=== PATIENT | female | born 1975 | race Hispanic/Latino ===

== ENCOUNTER → 2020-10-20 15:06 | Outpatient (CLI) | payer OTHER, SELFPAY ==
[2020-10-20 15:24] LABS: Add Manual Diff / Slide Review NO; Basophils Absolute Auto 100 /uL (0-100); Basophils Percent Auto 0.6 % (0-2); Eosinophils Absolute Auto 400 /uL (0-450); Eosinophils Percent Auto 3.8 % (2-4); Hematocrit 42.7 % (36-46); Hemoglobin 14.7 g/dL (12.0-16.0); Lymphocytes Absolute Auto 3100 /uL (1100-4500); Lymphocytes Percent Auto 31.1 % (25-40); Mean Corpuscular HGB Conc 34.4 % (30-36); Mean Corpuscular Hemoglobin 30.7 PG (26-34); Mean Corpuscular Volume 89.1 fL (80-100); Monocytes Absolute Auto 900 /uL (0-900); Monocytes Percent Auto 9.3 % (3-14); Neutrophils Absolute Auto 5500 /uL (1500-7000); Neutrophils Percent Auto 55.2 % (50-75); Platelet Count 326 X10^3/uL (150-400); Red Blood Cell Count 4.79 X10^6/uL (4.0-5.2); Red Cell Distribution Width 12.3 % (11.6-14.8); White Blood Cell Count 9.9 X10^3/uL (4.5-11.0)
[2020-10-20 15:37] LABS: Alanine Aminotransferase 30 IU/L (<35); Albumin 4.1 g/dL (3.5-5.0); Albumin Globulin Ratio 1.4 (1.0-2.8); Alkaline Phosphatase 75 U/L (38-126); Aspartate Aminotransferase 28 IU/L (14-36); BUN Creatinine Ratio 16.9 (6-22); Bilirubin Total 0.3 mg/dL (0.2-1.3); Blood Urea Nitrogen 14 mg/dL (7-17); Calcium 9.1 mg/dL (8.4-10.2); Carbon Dioxide 29 mmol/L (22-32); Chloride 102 mmol/L (98-107); Estimated Glomerular Filt Rate > 60.0 mL/min (>60); Glucose 87 mg/dL (70-100); HEMOLYSIS < 15 (0-50); Potassium 3.9 mmol/L (3.4-5.1); Sodium 138 mmol/L (137-145); Total Protein 7.1 g/dL (6.3-8.2)
[2020-10-20 16:07] LABS: Thyroid Stimulating Hormone 0.148 uIU/mL (0.47-4.68)
== END ==
PROVIDERS: Referring Provider Registered Nurse; Visit Provider Registered Nurse
DX: M79.7 Fibromyalgia (principal); E03.9 Hypothyroidism, unspecified
CPT/HCPCS: 36415; 80053; 84439; 84443; 85025

== ENCOUNTER → 2021-01-07 08:01 | Outpatient (CLI) | payer OTHER, SELFPAY ==
--- NOTE | 2021-01-07 08:03 | DI.MG.S_ITS ---
BILATERAL DIGITAL SCREENING MAMMOGRAM 3D/2D WITH CAD: 01/07/2021 CLINICAL: Routine screening. Family history of breast cancer. Comparison is made to exams dated: 04/03/2017 mammogram, 03/27/2017 mammogram, and 03/20/2017 mammogram - outside. There are scattered fibroglandular elements in both breasts. Current study was also evaluated with a Computer Aided Detection (CAD) system. No significant masses, calcifications, or other findings are seen in either breast. There has been no significant interval change. IMPRESSION: NEGATIVE There is no mammographic evidence of malignancy. A 1 year screening mammogram is recommended. This exam was interpreted at Station ID: [id number]. NOTE: For mammograms, a report in lay terms will be sent to the patient. Approximately 15% of breast malignancies will not be visualized mammographically. In the management of a palpable breast mass, a negative mammogram must not discourage biopsy of a clinically suspicious lesion. Electronically Signed By: Yvan araujo/faizan:01/07/2021 14:17:40 letter sent: Normal Exam ACR BI-RADS Category 1: Negative 3341F
== END ==
PROVIDERS: Referring Provider Specialist; Visit Provider Specialist
DX: Z12.31 Encounter for screening mammogram for malignant neoplasm of breast (principal); Z80.3 Family history of malignant neoplasm of breast
CPT/HCPCS: 77063; 77067

== ENCOUNTER → 2021-02-25 12:59 | Outpatient (CLI) | payer OTHER, SELFPAY ==
--- NOTE | 2021-02-25 13:05 | DI.RAD.S_ITS ---
PROCEDURE: XR CHEST 2V INDICATIONS: cough, wheezing TECHNIQUE: 2 views of the chest were acquired. COMPARISON: None. FINDINGS: Surgical changes and devices: None. Lungs and pleura: Lungs are clear. No pleural effusions or pneumothorax. Mediastinum: Mediastinal contours are normal. Heart size is normal. There is a moderate to large hiatal hernia. Bones and chest wall: No suspicious bony abnormalities. Soft tissues appear unremarkable. IMPRESSION: Clear lungs. Moderate to large hiatal hernia. Dictated by: Neo Farr M.D. on 02/25/2021 at 15:30 Approved by: Neo Farr M.D. on 02/25/2021 at 15:30
== END ==
PROVIDERS: Referring Provider Physician Assistant; Visit Provider Physician Assistant
DX: R06.2 Wheezing (principal); R05.9 Cough, unspecified; K44.9 Diaphragmatic hernia without obstruction or gangrene
CPT/HCPCS: 71046

== ENCOUNTER → 2021-02-28 12:50 | Outpatient (CLI) | payer OTHER, SELFPAY ==
[2021-02-28 15:24] LABS: Thyroid Stimulating Hormone 0.835 uIU/mL (0.47-4.68)
== END ==
PROVIDERS: PCP Registered Nurse; Referring Provider Nurse Practitioner; Visit Provider Nurse Practitioner
DX: E03.9 Hypothyroidism, unspecified (principal); Z79.899 Other long term (current) drug therapy
CPT/HCPCS: 36415; 84443

== ENCOUNTER → 2021-05-11 08:58 | Outpatient (CLI) | payer OTHER, SELFPAY ==
[2021-05-11 11:02] LABS: Alanine Aminotransferase 22 IU/L (<35); Albumin 4.1 g/dL (3.5-5.0); Albumin Globulin Ratio 1.5 (1.0-2.8); Alkaline Phosphatase 85 U/L (38-126); Aspartate Aminotransferase 23 IU/L (14-36); BUN Creatinine Ratio 18.6 (6-22); Bilirubin Total 0.3 mg/dL (0.2-1.3); Blood Urea Nitrogen 16 mg/dL (7-17); Calcium 9.5 mg/dL (8.4-10.2); Carbon Dioxide 30 mmol/L (22-32); Chloride 103 mmol/L (98-107); Estimated Glomerular Filt Rate > 60.0 mL/min (>60); Globulin 2.8 g/dL (1.7-4.1); Glucose 90 mg/dL (70-100); HEMOLYSIS < 15 (0-50); Potassium 4.2 mmol/L (3.4-5.1); Sodium 139 mmol/L (137-145); Total Protein 6.9 g/dL (6.3-8.2)
[2021-05-11 11:03] LABS: Free T3, Triiodothyronine Free 2.72 pg/mL (2.77-5.27); Free T4, Direct Thyroxine 1.04 ng/dL (0.78-2.19)
[2021-05-11 11:17] LABS: Thyroid Stimulating Hormone 2.33 uIU/mL (0.47-4.68)
== END ==
PROVIDERS: PCP Registered Nurse; Referring Provider Registered Nurse; Visit Provider Registered Nurse
DX: E03.9 Hypothyroidism, unspecified (principal); L70.0 Acne vulgaris; Z79.899 Other long term (current) drug therapy
CPT/HCPCS: 36415; 80053; 84439; 84443; 84481

== ENCOUNTER → 2021-07-03 09:12 | Outpatient (CLI) | payer OTHER, SELFPAY ==
[2021-07-03 10:43] LABS: Add Manual Diff / Slide Review NO; Basophils Absolute Auto 0 /uL (0-100); Basophils Percent Auto 0.6 % (0-2); Eosinophils Absolute Auto 200 /uL (0-450); Eosinophils Percent Auto 2.5 % (2-4); Hematocrit 43.9 % (36-46); Hemoglobin 15.4 g/dL (12.0-16.0); Lymphocytes Absolute Auto 1700 /uL (1100-4500); Lymphocytes Percent Auto 23.2 % (25-40); Mean Corpuscular HGB Conc 35.1 % (30-36); Mean Corpuscular Hemoglobin 31.3 PG (26-34); Mean Corpuscular Volume 89.3 fL (80-100); Monocytes Absolute Auto 500 /uL (0-900); Monocytes Percent Auto 7.2 % (3-14); Neutrophils Absolute Auto 4900 /uL (1500-7000); Neutrophils Percent Auto 66.5 % (50-75); Platelet Count 342 X10^3/uL (150-400); Red Blood Cell Count 4.92 X10^6/uL (4.0-5.2); Red Cell Distribution Width 12.3 % (11.6-14.8); White Blood Cell Count 7.4 X10^3/uL (4.5-11.0)
[2021-07-03 11:15] LABS: Alanine Aminotransferase 27 IU/L (<35); Albumin 4.5 g/dL (3.5-5.0); Albumin Globulin Ratio 1.6 (1.0-2.8); Alkaline Phosphatase 65 U/L (38-126); Aspartate Aminotransferase 26 IU/L (14-36); BUN Creatinine Ratio 21.2 (6-22); Bilirubin Total 0.6 mg/dL (0.2-1.3); Blood Urea Nitrogen 18 mg/dL (7-17); Calcium 9.4 mg/dL (8.4-10.2); Carbon Dioxide 26 mmol/L (22-32); Chloride 105 mmol/L (98-107); Estimated Glomerular Filt Rate > 60.0 mL/min (>60); Globulin 2.9 g/dL (1.7-4.1); Glucose 95 mg/dL (70-100); HEMOLYSIS < 15 (0-50); Potassium 3.9 mmol/L (3.4-5.1); Sodium 138 mmol/L (137-145); Total Protein 7.4 g/dL (6.3-8.2)
== END ==
PROVIDERS: PCP Registered Nurse; Referring Provider Surgery; Visit Provider Surgery
DX: K44.9 Diaphragmatic hernia without obstruction or gangrene (principal)
CPT/HCPCS: 36415; 80053; 85025

== ENCOUNTER → 2022-09-14 15:41 | Outpatient (CLI) | payer OTHER, SELFPAY ==
--- NOTE | 2022-09-14 15:41 | DI.US.S_ITS ---
PROCEDURE: US PELVIC COMPLETE INDICATIONS: PAIN; HISTORY CYSTS TECHNIQUE: Real-time scanning was performed of the pelvic organs, with image documentation. Additional endovaginal scanning was necessary due to incomplete visualization of the adnexal and endometrial structures by transabdominal scanning. COMPARISON: None. FINDINGS: Uterus: Surgically absent Ovaries: Neither ovary is visualized Other: No pathologic free abdominal or pelvic fluid. IMPRESSION: Hysterectomy Nonvisualized ovaries No free fluid or adnexal mass. Approved by: Gustavo Dela Cruz M.D. on 09/14/2022 at 16:03
== END ==
PROVIDERS: PCP Family Medicine; Referring Provider Family Medicine; Visit Provider Family Medicine
DX: N95.1 Menopausal and female climacteric states (principal); Z87.42 Personal history of other diseases of the female genital tract; Z90.710 Acquired absence of both cervix and uterus
CPT/HCPCS: 76830; 76856

== ENCOUNTER → 2022-10-10 13:19 | Outpatient (CLI) | payer OTHER, SELFPAY ==
--- NOTE | 2022-10-10 13:21 | DI.MG.S_ITS ---
BILATERAL DIGITAL SCREENING MAMMOGRAM 3D/2D WITH CAD: 10/10/2022 CLINICAL: Routine screening. Family history of breast cancer. Comparison is made to exams dated: 08/07/2021 mammogram - [facility], 01/07/2021 mammogram - [facility], and 03/27/2017 mammogram - outside. There are scattered areas of fibroglandular density in both breasts (category b / 25%-50% glandular tissue). Current study was also evaluated with a Computer Aided Detection (CAD) system. No significant masses, calcifications, or other findings are seen in either breast. There has been no significant interval change. IMPRESSION: NEGATIVE There is no mammographic evidence of malignancy. A 1 year screening mammogram is recommended. Based on the Tyrer Cuzick model (a risk assessment model) the patient's lifetime risk is 6.9% and her 10 year risk is 1.4%. According to the ACR, ACS, and NCCN guidelines, an annual breast MRI exam along with mammogram is recommended if the patient's lifetime risk is 20% or greater. This exam was interpreted at Station ID: [id number]. NOTE: For mammograms, a report in lay terms will be sent to the patient. Approximately 15% of breast malignancies will not be visualized mammographically. In the management of a palpable breast mass, a negative mammogram must not discourage biopsy of a clinically suspicious lesion. Electronically Signed By: Maurice hutchison/faizan:10/10/2022 13:53:11 letter sent: Normal Exam ACR BI-RADS Category 1: Negative [id number]
== END ==
PROVIDERS: PCP Family Medicine; Referring Provider Family Medicine; Visit Provider Family Medicine
DX: Z12.31 Encounter for screening mammogram for malignant neoplasm of breast (principal); Z80.3 Family history of malignant neoplasm of breast
CPT/HCPCS: 77063; 77067

== ENCOUNTER → 2023-02-25 07:42 | Outpatient (CLI) | payer OTHER, SELFPAY ==
[2023-02-25 08:12] LABS: Alanine Aminotransferase 64 IU/L (<35); Albumin 4.2 g/dL (3.5-5.0); Albumin Globulin Ratio 1.3 (1.0-2.8); Alkaline Phosphatase 78 U/L (38-126); Aspartate Aminotransferase 45 IU/L (14-36); BUN Creatinine Ratio 18.8 (6-22); Bilirubin Total 0.6 mg/dL (0.2-1.3); Blood Urea Nitrogen 15 mg/dL (7-17); Calcium 9.6 mg/dL (8.4-10.2); Carbon Dioxide 27 mmol/L (22-32); Chloride 101 mmol/L (98-107); Cholesterol 247 mg/dL (140-199); Estimated Glomerular Filt Rate > 60 mL/min (>60); Globulin 3.2 g/dL (1.7-4.1); Glucose 106 mg/dL (70-100); HDL Cholesterol 46 mg/dL (40-60); HEMOLYSIS < 15 (0-50); LDL Cholesterol Calculated 141 mg/dL (<100); Potassium 3.9 mmol/L (3.4-5.1); Sodium 136 mmol/L (137-145); Total Protein 7.4 g/dL (6.3-8.2); Triglycerides 298 mg/dL (35-150)
[2023-02-25 08:31] LABS: Free T4, Direct Thyroxine 0.94 ng/dL (0.78-2.19)
[2023-02-25 08:45] LABS: Thyroid Stimulating Hormone 3.74 uIU/mL (0.47-4.68)
== END ==
PROVIDERS: PCP Family Medicine; Referring Provider Family Medicine; Visit Provider Family Medicine
DX: E03.9 Hypothyroidism, unspecified (principal); K21.9 Gastro-esophageal reflux disease without esophagitis
CPT/HCPCS: 36415; 80053; 80061; 84439; 84443

== ENCOUNTER → 2024-02-05 17:42 | Outpatient (CLI) | payer OTHER, SELFPAY ==
--- NOTE | 2024-02-05 17:44 | DI.RAD.S_ITS ---
PROCEDURE: XR CHEST 2V INDICATIONS: left side PNA suspected prod cough2 wk/fatigue 1 wk TECHNIQUE: 2 views of the chest were acquired. COMPARISON: [facility], CR, XR CHEST 2V, 02/25/2021, 13:21. FINDINGS: Surgical changes and devices: None. Lungs and pleura: Lungs are clear. No pleural effusions or pneumothorax. Mediastinum: Mediastinal contours are normal. Heart size is normal. Moderate-sized hiatal hernia. Bones and chest wall: No suspicious bony abnormalities. Soft tissues appear unremarkable. IMPRESSION: No acute cardiopulmonary abnormality is seen. Chronic moderate hiatal hernia. Dictated by: Bernice Gonzales M.D. on 02/05/2024 at 19:15 Approved by: Bernice Gonzales M.D. on 02/05/2024 at 19:16
== END ==
PROVIDERS: PCP Family Medicine; Referring Provider Student in an Organized Health Care Education/Training Program; Visit Provider Student in an Organized Health Care Education/Training Program
DX: J18.9 Pneumonia, unspecified organism (principal); K44.9 Diaphragmatic hernia without obstruction or gangrene
CPT/HCPCS: 71046

== ENCOUNTER → 2024-04-14 09:46 | Outpatient (CLI) | payer OTHER, SELFPAY ==
[2024-04-14 10:40] LABS: Add Manual Diff / Slide Review NO; Basophils Absolute Auto 100 /uL (0-100); Basophils Percent Auto 0.8 % (0-2); Eosinophils Absolute Auto 300 /uL (0-450); Eosinophils Percent Auto 3.1 % (2-4); Hematocrit 44.6 % (36-46); Hemoglobin 15.1 g/dL (12.0-16.0); Lymphocytes Absolute Auto 2000 /uL (1100-4500); Lymphocytes Percent Auto 22.1 % (25-40); Mean Corpuscular HGB Conc 33.8 % (30-36); Mean Corpuscular Volume 91.7 fL (80-100); Monocytes Absolute Auto 700 /uL (0-900); Monocytes Percent Auto 7.5 % (3-14); Neutrophils Absolute Auto 6000 /uL (1500-7000); Neutrophils Percent Auto 66.5 % (50-75); Platelet Count 322 X10^3/uL (150-400); Red Blood Cell Count 4.87 X10^6/uL (4.0-5.2); Red Cell Distribution Width 12.6 % (11.6-14.8); White Blood Cell Count 9.1 X10^3/uL (4.5-11.0)
[2024-04-14 11:01] LABS: Alanine Aminotransferase 51 IU/L (<35); Albumin 4.5 g/dL (3.5-5.0); Albumin Globulin Ratio 1.6 (1.0-2.8); Alkaline Phosphatase 88 U/L (38-126); Aspartate Aminotransferase 41 IU/L (14-36); BUN Creatinine Ratio 18.8 (6-22); Bilirubin Total 0.6 mg/dL (0.2-1.3); Blood Urea Nitrogen 16 mg/dL (7-17); Calcium 9.2 mg/dL (8.4-10.2); Carbon Dioxide 30 mmol/L (22-32); Chloride 103 mmol/L (98-107); Cholesterol 215 mg/dL (140-199); Estimated Glomerular Filt Rate > 60 mL/min (>60); Globulin 2.8 g/dL (1.7-4.1); Glucose 105 mg/dL (70-100); HDL Cholesterol 51 mg/dL (40-60); HEMOLYSIS < 15 (0-50); LDL Cholesterol Calculated 137 mg/dL (<100); Potassium 3.9 mmol/L (3.4-5.1); Sodium 140 mmol/L (137-145); Total Protein 7.3 g/dL (6.3-8.2); Triglycerides 133 mg/dL (35-150)
[2024-04-14 11:12] LABS: Hemoglobin A1C% w Est Avg Glu 5.2 % (4.0-6.0)
[2024-04-14 11:18] LABS: Free T4, Direct Thyroxine 1.38 ng/dL (0.78-2.19)
[2024-04-14 11:32] LABS: Thyroid Stimulating Hormone 0.225 uIU/mL (0.47-4.68)
== END ==
PROVIDERS: PCP Family Medicine; Referring Provider Family Medicine; Visit Provider Family Medicine
DX: R73.03 Prediabetes (principal); E78.5 Hyperlipidemia, unspecified; E03.9 Hypothyroidism, unspecified
CPT/HCPCS: 36415; 80053; 80061; 83036; 84439; 84443; 85025

== ENCOUNTER → 2024-06-01 12:27 | Outpatient (CLI) | payer OTHER, SELFPAY ==
--- NOTE | 2024-06-01 12:28 | DI.RAD.S_ITS ---
PROCEDURE: XR CHEST 2V INDICATIONS: Cough TECHNIQUE: 2 views of the chest were acquired. COMPARISON: [facility], CR, XR CHEST 2V, 02/05/2024, 17:44. FINDINGS: Surgical changes and devices: None. Lungs and pleura: Lungs are clear. No pleural effusions or pneumothorax. Mediastinum: Mediastinal contours are normal. Heart size is normal. Bones and chest wall: No suspicious bony abnormalities. Soft tissues appear unremarkable. IMPRESSION: No acute cardiopulmonary abnormality is seen. Dictated by: Juan A Mace M.D. on 06/02/2024 at 5:23 Approved by: Juan A Mace M.D. on 06/02/2024 at 5:24
== END ==
PROVIDERS: PCP Family Medicine; Referring Provider Nurse Practitioner Family; Visit Provider Nurse Practitioner Family
DX: R05.9 Cough, unspecified (principal)
CPT/HCPCS: 71046

== ENCOUNTER → 2024-06-03 15:58 | Outpatient (CLI) | payer OTHER, SELFPAY ==
--- NOTE | 2024-06-04 10:07 | DIET.OUTPTC ---
Dietary Outpatient Consultation Note Consultation Date: 06/03/2024 Assessment: 49 y F referred to dietitian for abnormal weight gain Pt reports difficulty loosing and maintaining weight loss no matter what diet she attempts. Has tried some diets like liver shrinking and juice cleanse, which results in weight loss during diet, but weight regain after diet is stopped. Is ready for change. Wanting to experience less discomfort felt with extra weight. Wanting to have more energy. Works at preschool, is exhausted by end of day. In process of moving as well. Has on and off constipation (1-3 bristol stool chart) and diarrhea (6-7) that cycles. I.e. constipation then regular BM, then diarrhea. Associates this with being sick all the time. Doesn't drink milk d/t lactose intolerance like symptoms from it. Diet recall: B-coffee 1 mug, with 1tsp sugar and 1/4 c half and half L-leftovers -sometimes only able to take a bite or two d/t busy at work D-animal protein (chicken w/o skin, 90% lean beef or pork, shrimp 1x/wk, hamburger 1x/wk) with starchy veg/miranda (potatoes/corn) ex meals were chicken with potatoes and corn and tater tot casserole with beef, beans, and tater tots *has beans and tortillas as part of most meals per week which are cooked with unknown amount of lard in them, does note cooking by frying in oils/butter/lard. Pt is main cook in household. Lard comes from cooking salas. Snack: 1/4 c pistachios, popcorn 2x/month, pretzels, or fruit ( apples etc) Drinks water only. Has not had soda in very long time. Difficulty with maintaining eating schedule, notes she is a picker and sorter load and unload/picking at food. Activity: walking at store/grocery store on weekend day Ht:5ft Wt: 190 lb BMI: 37.1 UBW: Pt reports being 90lb before her hysterectomy surgery and then having rapid weight gain of 60 lb within 8 months after Nutrition Diagnosis: Excessive fat intake r/t cooking methods aeb diet recall with frying foods and adding lard to beans/tortillas regularly Interventions: Discussed the following topics and provided handouts: -Balanced meals and snacks in line with myplate, Mediterranean style of eating -Portion sizing -Education on label reading -Intuitive eating principals/practice -Assessing hunger/fullness level -Fiber and fat types, amounts -Physical activity -Lab values and correlation with nutrition Goal: -Eliminate lard use majority of days with alternative cooking method or use portioned oil serving -Organizing schedule to make room for sit down lunch, pt also wanting to start having a breakfast of banana or turkey sausage shae + 1 sl ww bread -Portioned starchy veg + a serving of non-starchy vegs/fruits at dinner meal to align closer with myplate distributions Monitoring/Evaluations: f/u 6wks Electronically Signed by: Anisa Melton 06/04/24 10:07 Clinical Dietitian [address] [id number]
== END ==
PROVIDERS: PCP Family Medicine; Referring Provider Family Medicine
DX: R63.5 Abnormal weight gain (principal); K59.00 Constipation, unspecified; R19.7 Diarrhea, unspecified; Z68.37 Body mass index [BMI] 37.0-37.9, adult; Z71.3 Dietary counseling and surveillance
CPT/HCPCS: 97802

== ENCOUNTER → 2024-08-31 15:52 | Outpatient (CLI) | payer OTHER, SELFPAY ==
[2024-08-31 16:51] LABS: Follicle Stimulating Hormone 27.8 mIU/mL
[2024-08-31 17:07] LABS: Estradiol, Total 75.7 pg/mL
== END ==
PROVIDERS: PCP Family Medicine; Referring Provider Obstetrics & Gynecology; Visit Provider Obstetrics & Gynecology
DX: N95.1 Menopausal and female climacteric states (principal)
CPT/HCPCS: 36415; 82670; 83001

== ENCOUNTER → 2025-01-12 08:13 | Outpatient (CLI) | payer OTHER, SELFPAY ==
[2025-01-12 08:53] LABS: Add Manual Diff / Slide Review NO; Hematocrit 44.6 % (36-46); Hemoglobin 15.2 g/dL (12.0-16.0); Lymphocytes Absolute Auto 2200 /uL (1100-4500); Mean Corpuscular HGB Conc 34.2 % (30-36); Mean Corpuscular Hemoglobin 30.5 PG (26-34); Mean Corpuscular Volume 89.2 fL (80-100); Platelet Count 316 X10^3/uL (150-400)
[2025-01-12 09:06] LABS: Hemoglobin A1C% w Est Avg Glu 5.5 % (4.0-6.0)
[2025-01-12 09:22] LABS: Alanine Aminotransferase 34 IU/L (<35); Albumin 4.3 g/dL (3.5-5.0); Albumin Globulin Ratio 1.7 (1.0-2.8); Alkaline Phosphatase 87 U/L (38-126); Blood Urea Nitrogen 12 mg/dL (7-17); Calcium 9.4 mg/dL (8.4-10.2); Carbon Dioxide 24 mmol/L (22-32); Chloride 105 mmol/L (98-107); Cholesterol 237 mg/dL (140-199); Estimated Glomerular Filt Rate > 60 mL/min (>60); Globulin 2.6 g/dL (1.7-4.1); Glucose 107 mg/dL (70-99); HDL Cholesterol 59 mg/dL (40-60); HEMOLYSIS < 15 (0-50); Potassium 4.0 mmol/L (3.4-5.1); Sodium 138 mmol/L (137-145); Total Protein 6.9 g/dL (6.3-8.2); Triglycerides 201 mg/dL (35-150)
[2025-01-12 10:39] LABS: Free T3, Triiodothyronine Free 5.05 pg/mL (2.77-5.27); Free T4, Direct Thyroxine 1.29 ng/dL (0.78-2.19)
[2025-01-12 10:53] LABS: Thyroid Stimulating Hormone 0.131 uIU/mL (0.47-4.68)
[2025-01-15 15:09] LABS: ANA Screen, IFA Negative (.)
== END ==
PROVIDERS: PCP Family Medicine; Referring Provider Naturopath; Visit Provider Registered Nurse
DX: Z00.00 Encounter for general adult medical examination without abnormal findings (principal); E03.9 Hypothyroidism, unspecified; L52 Erythema nodosum; R21 Rash and other nonspecific skin eruption; R73.03 Prediabetes; Z79.899 Other long term (current) drug therapy
CPT/HCPCS: 36415; 80053; 80061; 83036; 84439; 84443; 84481; 85025; 85651; 86038; 86140; 86376